=== PATIENT | male | born 1950 | race Asian ===

== ENCOUNTER 2023-07-03 10:45 | Outpatient (RCR) | payer MEDICARE, SELFPAY ==
--- NOTE | 2023-05-31 09:00 | PT.OIE ---
Current Diagnoses Pain in right knee (05/31/23) Pain in right ankle and joints of right foot (05/31/23) Unspecified fracture of shaft of right tibia, subsequent encounter for closed fracture with routine healing (05/31/23) Visit Care Team Role Provider Type Mayra Bonner MD Family Provider Non-Staff Primary Care Provider Specialty: Internal Medicine Address: [address] [place], [address] Email: Frankie Camp DPM Attending Provider Non-Staff Referring Provider Specialty: Medical Address: [address] [place], [address] Email: Physical Therapy Initial Evaluation PT-OP-A Visit Information Start: 05/31/23 08:11 Freq: Status: Active Protocol: Document 05/31/23 08:44 ED (Rec: 05/31/23 09:00 ED [id number]) Out-Patient Physical Therapy Visit Information Visit Information Visit Type Initial Evaluation Visit Note Date of Surgery: 04/07/23 Visit Start Time 08:10 Visit Stop Time 08:50 Total Visit Minutes 40 Visit Number 1 Evaluation Information Evaluation Date 05/31/23 PT-OP-B Current Condition Start: 05/31/23 08:11 Freq: Status: Active Protocol: Document 05/31/23 08:44 ED (Rec: 05/31/23 09:00 ED [id number]) Current Condition History of Current Condition Onset Date 04/07 History of Current Condition Pt is s/p R IM sohan on 04/07/23 after a tib/fib fracture while hiking in [place]. Pt does speak Armenian and denies wanting an photoengraving machine operator/tender for PT evaluation. Pt states that his ankle is more red compared to his R ankle and that it hurts when he walks and uses stairs . Per patient report, he is living in a hotel in [facility] until he is ready to go back to his house near [place]. Pt does have access to a gym at the hotel. He denies doing any exercises to after his surgery. Prior Functional Status Baseline Function- ADL's Independent Baseline Function- Mobility Independent PT-OP-C Subjective Start: 05/31/23 08:11 Freq: Status: Active Protocol: Document 05/31/23 08:44 ED (Rec: 05/31/23 09:00 ED [id number]) OP-PT Subjective Patient Comments Patient Reported Progress Improving Patient Questionnaires Lower Extremity Functional Scale LEFS Score 26 / 80 = 32.5 % LEFS Impairment 20 to 39% Impaired (Score 48- 62) OP-PT Pain Assessment Location R knee/ankle Pain Location Details R anterior knee and anterior ankle Intensity 2 Scale Used Numeric (0 - 10) Description Aching,Dull,Sharp Frequency Intermittent Pain Aggravating Factors Position,Changing Position, Activity,Exercise,Stair Climbing PT-OP-D Balance Start: 05/31/23 08:11 Freq: Status: Active Protocol: Document 05/31/23 08:44 ED (Rec: 05/31/23 09:00 ED [id number]) Balance Tests Single Limb Standing Single Limb- Right <3 seconds Single Limb- Left 5-10 seconds PT-OP-K Range of Motion Start: 05/31/23 08:11 Freq: Status: Active Protocol: Document 05/31/23 08:44 ED (Rec: 05/31/23 09:00 ED [id number]) Ankle and Foot Goniometric Range of Motion Ankle and Foot Left Active Ankle/Foot ROM WFL Yes Testing Position Sitting Dorsiflexion with Knee Flexed 5 Plantarflexion 50 Right Active Ankle/Foot ROM WFL No Testing Position Sitting Dorsiflexion with Knee Flexed 0 Plantarflexion 30 PT-OP-M Strength Start: 05/31/23 08:11 Freq: Status: Active Protocol: Document 05/31/23 08:44 ED (Rec: 05/31/23 09:00 ED [id number]) Ankle/Foot Strength Ankle and Foot Manual Muscle Testing Left Dorsiflexion (L4) 4 Good Plantarflexion (S1) 4 Good Right Dorsiflexion (L4) 4- Good- Plantarflexion (S1) 3 Fair PT-OP-Q Treatments Start: 05/31/23 08:11 Freq: Status: Active Protocol: Document 05/31/23 08:44 ED (Rec: 05/31/23 09:00 ED [id number]) Cardio Equipment Elliptical Duration (Minutes) 5 Bicycle (Upright) Duration (Minutes) 5 Therapeutic Exercises Supine Exercises banded hip flexion/DF Side bilateral Reps/Minutes x10 each leg press Supine Exercise Name deep squats Side bilateral Sitting Exercises ankle circles Side right Reps/Minutes x30 CW/CCW Standing Exercises calf stretch Side bilateral Reps/Minutes x60'' hold heel raise Side bilateral Reps/Minutes x10 Comments 5'' holds PT-OP-T Assessment and Plan Start: 05/31/23 08:11 Freq: Status: Active Protocol: Document 05/31/23 08:44 ED (Rec: 05/31/23 09:00 ED [id number]) Physical Therapy Assessment Goals stairs Impairment stairs Short Term Goal (STG) Pt will be able to negotiate steps c/ reciprocal gait pattern and no UE assistance. STG Duration 3-4 weeks balance Impairment balance Short Term Goal (STG) Pt will be able to perform static SL balance on R LE for 10 seconds. STG Duration 3 weeks Optometry Teacher Goal (LTG) Pt will be able to perform dynamic SL balance on R LE c/ control and no pain. LTG Duration 6-8 weeks ROM Impairment ankle ROM Short Term Goal (STG) Pt will improve ankle PF ROM to 40 degrees and ankle DF to 5 degrees c/ knee bent. STG Duration 3 weeks Optometry Teacher Goal (LTG) Pt will improve ankle PF ROM to 50 degrees and/or ankle DF to 5 degrees c/ knee bent LTG Duration 6-8 weeks HEP Impairment HEP Short Term Goal (STG) Pt will report performing HEP >4 days/week. STG Duration 3 weeks Fpc Goal (LTG) Pt will report performing HEP >4 days/week. LTG Duration 6-8 weeks Assessment Summary Assessment Pt reported to PT s/p R IM sohan on 04/07/23 after a hiking accident in [place] over the summer. Pt rated pain as 2/10 in his R ankle and knee. He is ambulating c/ an antalgic gait pattern currently. He demonstrated reduced ankle ROM ; he was about 20 degrees shy in PF ROM compared to R ankle and lacking 5 degrees of DF. Pt currently unable to perform SL balance on R LE for >3 seconds. PT provided initial HEP to work on balance , strength, and ROM with exercises of : ankle circles, SL balance, heel raises, and riding stationary bike. Pt was able to perform all movements today c/o pain. Physical Therapy Plan Frequency and Duration Frequency of Treatment 2x/Week Duration of treatment (weeks) 10 Plan of Care Start Date 05/31/23 Plan of Care End Date 12/14/23 Therapeutic Interventions Therapeutic Interventions Balance Training,Coordination Training,Gait Training,Home Exercise Program,Joint Mobilizations,Manual Therapy, Neuromuscular Re-education, Patient/Caregiver Education, Self-Care/Home Management,Soft Tissue Mobilization,Taping, Therapeutic Activities, Therapeutic Exercises Modalities Biofeedback,Cold Pack/Ice Massage,Electric Stimulation, Hot Packs Next Visit Focus/Plan Next Note Type Treatment Note Next Visit Plan bike, HEP (ankle circles, heel raise, SL balance), elliptical, leg press squat, banded marching
--- NOTE | 2023-05-31 09:00 | PT.OPPOC ---
Physical, Occupational & Speech Therapy At [facility] Current Diagnoses Pain in right knee (05/31/23) Pain in right ankle and joints of right foot (05/31/23) Unspecified fracture of shaft of right tibia, subsequent encounter for closed fracture with routine healing (05/31/23) Visit Care Team Role Provider Type Mayra Bonner MD Family Provider Non-Staff Primary Care Provider Specialty: Internal Medicine Address: [address] [place], [address] Email: Frankie Camp DPM Attending Provider Non-Staff Referring Provider Specialty: Medical Address: [address] [place] [address], [address] Email: Plan Of Care PT-OP-T Assessment and Plan Start: 05/31/23 08:11 Freq: Status: Active Protocol: Document 05/31/23 08:44 ED (Rec: 05/31/23 09:00 ED [id number]) Physical Therapy Assessment Goals stairs Impairment stairs Short Term Goal (STG) Pt will be able to negotiate steps c/ reciprocal gait pattern and no UE assistance. STG Duration 3-4 weeks balance Impairment balance Short Term Goal (STG) Pt will be able to perform static SL balance on R LE for 10 seconds. STG Duration 3 weeks Halfway Goal (LTG) Pt will be able to perform dynamic SL balance on R LE c/ control and no pain. LTG Duration 6-8 weeks ROM Impairment ankle ROM Short Term Goal (STG) Pt will improve ankle PF ROM to 40 degrees and ankle DF to 5 degrees c/ knee bent. STG Duration 3 weeks Chief Psychology Goal (LTG) Pt will improve ankle PF ROM to 50 degrees and/or ankle DF to 5 degrees c/ knee bent LTG Duration 6-8 weeks HEP Impairment HEP Short Term Goal (STG) Pt will report performing HEP >4 days/week. STG Duration 3 weeks Chief Psychology Goal (LTG) Pt will report performing HEP >4 days/week. LTG Duration 6-8 weeks Assessment Summary Assessment Pt reported to PT s/p R IM sohan on 04/07/23 after a hiking accident in [place] over the summer. Pt rated pain as 2/10 in his R ankle and knee. He is ambulating c/ an antalgic gait pattern currently. He demonstrated reduced ankle ROM ; he was about 20 degrees shy in PF ROM compared to R ankle and lacking 5 degrees of DF. Pt currently unable to perform SL balance on R LE for >3 seconds. PT provided initial HEP to work on balance , strength, and ROM with exercises of : ankle circles, SL balance, heel raises, and riding stationary bike. Pt was able to perform all movements today c/o pain. Physical Therapy Plan Frequency and Duration Frequency of Treatment 2x/Week Duration of treatment (weeks) 10 Plan of Care Start Date 05/31/23 Plan of Care End Date 08/29/23 Therapeutic Interventions Therapeutic Interventions Balance Training,Coordination Training,Gait Training,Home Exercise Program,Joint Mobilizations,Manual Therapy, Neuromuscular Re-education, Patient/Caregiver Education, Self-Care/Home Management,Soft Tissue Mobilization,Taping, Therapeutic Activities, Therapeutic Exercises Modalities Biofeedback,Cold Pack/Ice Massage,Electric Stimulation, Hot Packs Next Visit Focus/Plan Next Note Type Treatment Note Next Visit Plan bike, HEP (ankle circles, heel raise, SL balance), elliptical, leg press squat, banded marching Plan of Care Dates Plan of Care Start Date 05/31/23 Plan of Care End Date 08/29/23 Electronically Signed by: Nayan Soni PT 05/31/23 0900 If you are in agreement with this Plan of Care, please return a signed and dated copy. I have reviewed this Plan of Care and certify that the skilled therapy services above are required to meet the patient?s needs. Physician Signature Date Printed Name and Credentials Clinical Instructor Signature Printed Name and Credentials
--- NOTE | 2023-06-05 09:41 | PT.OTN ---
Current Diagnoses Pain in right knee (06/05/23) Pain in right ankle and joints of right foot (06/05/23) Unspecified fracture of shaft of right tibia, subsequent encounter for closed fracture with routine healing (06/05/23) Physical Therapy Treatment Note PT-OP-A Visit Information Start: 05/31/23 08:11 Freq: Status: Active Protocol: Document 06/05/23 09:36 ED (Rec: 06/05/23 09:41 ED [id number]) Out-Patient Physical Therapy Visit Information Visit Information Visit Type Treatment Note Visit Note Date of Surgery: 04/07/23 Visit Start Time 09:00 Visit Stop Time 09:40 Total Visit Minutes 40 Visit Number 2 PT-OP-B Current Condition Start: 05/31/23 08:11 Freq: Status: Active Protocol: Document 05/31/23 08:44 ED (Rec: 05/31/23 09:00 ED [id number]) Current Condition History of Current Condition Onset Date 04/07 History of Current Condition Pt is s/p R IM sohan on 04/07/23 after a tib/fib fracture while hiking in [place]. Pt does speak Bangladeshi and denies wanting an campaign marketing manager for PT evaluation. Pt states that his ankle is more red compared to his R ankle and that it hurts when he walks and uses stairs . Per patient report, he is living in a hotel in [facility] until he is ready to go back to his house near [place]. Pt does have access to a gym at the hotel. He denies doing any exercises to after his surgery. Prior Functional Status Baseline Function- ADL's Independent Baseline Function- Mobility Independent PT-OP-C Subjective Start: 05/31/23 08:11 Freq: Status: Active Protocol: Document 06/05/23 09:36 ED (Rec: 06/05/23 09:41 ED [id number]) OP-PT Subjective Patient Comments Patient Comments Pt states that he did his HEP in the AM and PM since his evaluation. His ankle feels better. He has some pain in his proximal R tibia area but it is sparse. PT-OP-D Balance Start: 05/31/23 08:11 Freq: Status: Active Protocol: Document 05/31/23 08:44 ED (Rec: 05/31/23 09:00 ED [id number]) Balance Tests Single Limb Standing Single Limb- Right <3 seconds Single Limb- Left 5-10 seconds PT-OP-K Range of Motion Start: 05/31/23 08:11 Freq: Status: Active Protocol: Document 05/31/23 08:44 ED (Rec: 05/31/23 09:00 ED [id number]) Ankle and Foot Goniometric Range of Motion Ankle and Foot Left Active Ankle/Foot ROM WFL Yes Testing Position Sitting Dorsiflexion with Knee Flexed 5 Plantarflexion 50 Right Active Ankle/Foot ROM WFL No Testing Position Sitting Dorsiflexion with Knee Flexed 0 Plantarflexion 30 PT-OP-M Strength Start: 05/31/23 08:11 Freq: Status: Active Protocol: Document 05/31/23 08:44 ED (Rec: 05/31/23 09:00 ED [id number]) Ankle/Foot Strength Ankle and Foot Manual Muscle Testing Left Dorsiflexion (L4) 4 Good Plantarflexion (S1) 4 Good Right Dorsiflexion (L4) 4- Good- Plantarflexion (S1) 3 Fair PT-OP-Q Treatments Start: 05/31/23 08:11 Freq: Status: Active Protocol: Document 06/05/23 09:36 ED (Rec: 06/05/23 09:41 ED [id number]) Cardio Equipment Recumbent Bicycle Duration (Minutes) 5 Therapeutic Exercises Supine Exercises banded hip flexion/DF Supine Exercise Name seated DF against band Side bilateral Reps/Minutes 2x20 ea leg press Supine Exercise Name deep squats Side bilateral Resistance 25# Reps/Minutes 3x15 Comments unilateral Standing Exercises calf stretch Side bilateral Reps/Minutes 3x60'' hold heel raise Side bilateral Reps/Minutes 2x10 Comments 5'' holds Neuro Re-Education Treatment Balance Activities SL balance Details SL balance Reps/Duration x5-10'' Comments required fingertip UE support ; slight pain in tibia during PT-OP-T Assessment and Plan Start: 05/31/23 08:11 Freq: Status: Active Protocol: Document 06/05/23 09:36 ED (Rec: 06/05/23 09:41 ED [id number]) Physical Therapy Assessment Goals stairs Impairment stairs Short Term Goal (STG) Pt will be able to negotiate steps c/ reciprocal gait pattern and no UE assistance. STG Duration 3-4 weeks balance Impairment balance Short Term Goal (STG) Pt will be able to perform static SL balance on R LE for 10 seconds. STG Duration 3 weeks Senior Care Goal (LTG) Pt will be able to perform dynamic SL balance on R LE c/ control and no pain. LTG Duration 6-8 weeks ROM Impairment ankle ROM Short Term Goal (STG) Pt will improve ankle PF ROM to 40 degrees and ankle DF to 5 degrees c/ knee bent. STG Duration 3 weeks Senior Care Goal (LTG) Pt will improve ankle PF ROM to 50 degrees and/or ankle DF to 5 degrees c/ knee bent LTG Duration 6-8 weeks HEP Impairment HEP Short Term Goal (STG) Pt will report performing HEP >4 days/week. STG Duration 3 weeks Condenser Setter Goal (LTG) Pt will report performing HEP >4 days/week. LTG Duration 6-8 weeks Assessment Summary Assessment Pt demonstrated improved gait quality today compared to evaluation. Denied any ankle discomfort during exercises today but did have slight proximal tibia discomfort during SL balance. PT focused on isolated strengthening to plantar flexors and dorsiflexors along with movements to improve DF ROM such as calf stretch and deep squats on leg press. Physical Therapy Plan Frequency and Duration Frequency of Treatment 2x/Week Duration of treatment (weeks) 10 Plan of Care Start Date 05/31/23 Plan of Care End Date 08/29/23 Therapeutic Interventions Therapeutic Interventions Balance Training,Coordination Training,Gait Training,Home Exercise Program,Joint Mobilizations,Manual Therapy, Neuromuscular Re-education, Patient/Caregiver Education, Self-Care/Home Management,Soft Tissue Mobilization,Taping, Therapeutic Activities, Therapeutic Exercises Modalities Biofeedback,Cold Pack/Ice Massage,Electric Stimulation, Hot Packs Next Visit Focus/Plan Next Note Type Treatment Note Next Visit Plan bike, HEP (ankle circles, heel raise, SL balance), elliptical, leg press squat, banded marching
--- NOTE | 2023-06-07 11:59 | PT.OTN ---
Current Diagnoses Pain in right knee (06/07/23) Pain in right ankle and joints of right foot (06/07/23) Unspecified fracture of shaft of right tibia, subsequent encounter for closed fracture with routine healing (06/07/23) Physical Therapy Treatment Note PT-OP-A Visit Information Start: 05/31/23 08:11 Freq: Status: Active Protocol: Document 06/07/23 11:55 ED (Rec: 06/07/23 11:58 ED [id number]) Out-Patient Physical Therapy Visit Information Visit Information Visit Type Treatment Note Visit Note Date of Surgery: 04/07/23 Visit Start Time 10:45 Visit Stop Time 11:15 Total Visit Minutes 45 Visit Number 3 PT-OP-B Current Condition Start: 05/31/23 08:11 Freq: Status: Active Protocol: Document 05/31/23 08:44 ED (Rec: 05/31/23 09:00 ED [id number]) Current Condition History of Current Condition Onset Date 04/07 History of Current Condition Pt is s/p R IM sohan on 04/07/23 after a tib/fib fracture while hiking in [place]. Pt does speak Ethiopian and denies wanting an hospital aides and assistants teacher for PT evaluation. Pt states that his ankle is more red compared to his R ankle and that it hurts when he walks and uses stairs . Per patient report, he is living in a hotel in [facility] until he is ready to go back to his house near [place]. Pt does have access to a gym at the hotel. He denies doing any exercises to after his surgery. Prior Functional Status Baseline Function- ADL's Independent Baseline Function- Mobility Independent PT-OP-C Subjective Start: 05/31/23 08:11 Freq: Status: Active Protocol: Document 06/07/23 11:55 ED (Rec: 06/07/23 11:58 ED [id number]) OP-PT Subjective Patient Comments Patient Comments Pt states he has some medial lower leg pain at times. Denies any increase in discomfort following last PT session. PT-OP-D Balance Start: 05/31/23 08:11 Freq: Status: Active Protocol: Document 05/31/23 08:44 ED (Rec: 05/31/23 09:00 ED [id number]) Balance Tests Single Limb Standing Single Limb- Right <3 seconds Single Limb- Left 5-10 seconds PT-OP-K Range of Motion Start: 05/31/23 08:11 Freq: Status: Active Protocol: Document 05/31/23 08:44 ED (Rec: 05/31/23 09:00 ED [id number]) Ankle and Foot Goniometric Range of Motion Ankle and Foot Left Active Ankle/Foot ROM WFL Yes Testing Position Sitting Dorsiflexion with Knee Flexed 5 Plantarflexion 50 Right Active Ankle/Foot ROM WFL No Testing Position Sitting Dorsiflexion with Knee Flexed 0 Plantarflexion 30 PT-OP-M Strength Start: 05/31/23 08:11 Freq: Status: Active Protocol: Document 05/31/23 08:44 ED (Rec: 05/31/23 09:00 ED [id number]) Ankle/Foot Strength Ankle and Foot Manual Muscle Testing Left Dorsiflexion (L4) 4 Good Plantarflexion (S1) 4 Good Right Dorsiflexion (L4) 4- Good- Plantarflexion (S1) 3 Fair PT-OP-Q Treatments Start: 05/31/23 08:11 Freq: Status: Active Protocol: Document 06/07/23 11:55 ED (Rec: 06/07/23 11:58 ED [id number]) Cardio Equipment Bicycle (Upright) Duration (Minutes) 5 Other forefoot on pedals Treadmill Duration (Minutes) 5 Speed 1.0 Other retro walking Therapeutic Exercises Supine Exercises banded hip flexion/DF Supine Exercise Name seated DF against band Side bilateral Reps/Minutes 2x20 ea leg press Supine Exercise Name deep squats Side bilateral Resistance 25# Reps/Minutes 3x15 Comments unilateral Standing Exercises calf stretch Side bilateral Reps/Minutes 3x60'' hold heel raise Standing Exercise Name captain alli Side bilateral Reps/Minutes 2x10 Comments 5'' holds Neuro Re-Education Treatment Balance Activities dynamic balance Details adan step overs Equipment hurdles Reps/Duration 2x4 laps PT-OP-T Assessment and Plan Start: 05/31/23 08:11 Freq: Status: Active Protocol: Document 06/07/23 11:55 ED (Rec: 06/07/23 11:58 ED [id number]) Physical Therapy Assessment Goals stairs Impairment stairs Short Term Goal (STG) Pt will be able to negotiate steps c/ reciprocal gait pattern and no UE assistance. STG Duration 3-4 weeks balance Impairment balance Short Term Goal (STG) Pt will be able to perform static SL balance on R LE for 10 seconds. STG Duration 3 weeks Well Testing Operator Goal (LTG) Pt will be able to perform dynamic SL balance on R LE c/ control and no pain. LTG Duration 6-8 weeks ROM Impairment ankle ROM Short Term Goal (STG) Pt will improve ankle PF ROM to 40 degrees and ankle DF to 5 degrees c/ knee bent. STG Duration 3 weeks Well Testing Operator Goal (LTG) Pt will improve ankle PF ROM to 50 degrees and/or ankle DF to 5 degrees c/ knee bent LTG Duration 6-8 weeks HEP Impairment HEP Short Term Goal (STG) Pt will report performing HEP >4 days/week. STG Duration 3 weeks Well Testing Operator Goal (LTG) Pt will report performing HEP >4 days/week. LTG Duration 6-8 weeks Assessment Summary Assessment Pt ambulated into clinic with antalgic gait pattern but was able to perform adan step overs and ambulate on TM without abnormal gait pattern. Pt denies any discomfort in ankle/foot area during drills but does occasionally have medial tibial discomfort but very low on the pain scale. PT focused on improving ankle ROM, balance, and strength.
--- NOTE | 2023-06-12 12:09 | PT.OTN ---
Current Diagnoses Pain in right knee (06/12/23) Pain in right ankle and joints of right foot (06/12/23) Unspecified fracture of shaft of right tibia, subsequent encounter for closed fracture with routine healing (06/12/23) Physical Therapy Treatment Note PT-OP-A Visit Information Start: 05/31/23 08:11 Freq: Status: Active Protocol: Document 06/12/23 12:02 ED (Rec: 06/12/23 12:06 ED [id number]) Out-Patient Physical Therapy Visit Information Visit Information Visit Type Treatment Note Visit Note Date of Surgery: 04/07/23 Visit Start Time 11:30 Visit Stop Time 12:10 Total Visit Minutes 40 Visit Number 4 PT-OP-B Current Condition Start: 05/31/23 08:11 Freq: Status: Active Protocol: Document 05/31/23 08:44 ED (Rec: 05/31/23 09:00 ED [id number]) Current Condition History of Current Condition Onset Date 04/07 History of Current Condition Pt is s/p R IM sohan on 04/07/23 after a tib/fib fracture while hiking in [place]. Pt does speak Indonesian and denies wanting an site interpreter for PT evaluation. Pt states that his ankle is more red compared to his R ankle and that it hurts when he walks and uses stairs . Per patient report, he is living in a hotel in [facility] until he is ready to go back to his house near [place]. Pt does have access to a gym at the hotel. He denies doing any exercises to after his surgery. Prior Functional Status Baseline Function- ADL's Independent Baseline Function- Mobility Independent PT-OP-C Subjective Start: 05/31/23 08:11 Freq: Status: Active Protocol: Document 06/12/23 12:02 ED (Rec: 06/12/23 12:06 ED [id number]) OP-PT Subjective Patient Comments Patient Comments Pt states his ankle is feeling better. His most noticeable pain is in his anterior proximal R tibia. PT-OP-D Balance Start: 05/31/23 08:11 Freq: Status: Active Protocol: Document 05/31/23 08:44 ED (Rec: 05/31/23 09:00 ED [id number]) Balance Tests Single Limb Standing Single Limb- Right <3 seconds Single Limb- Left 5-10 seconds PT-OP-K Range of Motion Start: 05/31/23 08:11 Freq: Status: Active Protocol: Document 05/31/23 08:44 ED (Rec: 05/31/23 09:00 ED [id number]) Ankle and Foot Goniometric Range of Motion Ankle and Foot Left Active Ankle/Foot ROM WFL Yes Testing Position Sitting Dorsiflexion with Knee Flexed 5 Plantarflexion 50 Right Active Ankle/Foot ROM WFL No Testing Position Sitting Dorsiflexion with Knee Flexed 0 Plantarflexion 30 PT-OP-M Strength Start: 05/31/23 08:11 Freq: Status: Active Protocol: Document 05/31/23 08:44 ED (Rec: 05/31/23 09:00 ED [id number]) Ankle/Foot Strength Ankle and Foot Manual Muscle Testing Left Dorsiflexion (L4) 4 Good Plantarflexion (S1) 4 Good Right Dorsiflexion (L4) 4- Good- Plantarflexion (S1) 3 Fair PT-OP-Q Treatments Start: 05/31/23 08:11 Freq: Status: Active Protocol: Document 06/12/23 12:02 ED (Rec: 06/12/23 12:06 ED [id number]) Cardio Equipment Bicycle (Upright) Duration (Minutes) 5 Other forefoot on pedals Therapeutic Exercises Supine Exercises leg press Supine Exercise Name deep squats Side bilateral Resistance 25# Reps/Minutes 3x15 Comments unilateral Standing Exercises standing dorsiflexion Reps/Minutes 2x20 heel/toe walking Reps/Minutes 2x15' calf stretch Side bilateral Reps/Minutes 3x60'' hold heel raise Standing Exercise Name captain alli Side bilateral Reps/Minutes 2x10 Comments 5'' holds Therapeutic Activity Therapeutic Activity step ups Name 8'' step up Reps/Minutes 2x15 Comments cued to keep heel in contract c/ ground; minimal UE assistance Neuro Re-Education Treatment Balance Activities dynamic balance Details adan step overs Equipment hurdles Reps/Duration 2x4 laps SL balance Details SL balance Reps/Duration x5-10'' Comments no UE support; max hold was 6 seconds for R LE PT-OP-T Assessment and Plan Start: 05/31/23 08:11 Freq: Status: Active Protocol: Document 06/12/23 12:02 ED (Rec: 06/12/23 12:06 ED [id number]) Physical Therapy Assessment Goals stairs Impairment stairs Short Term Goal (STG) Pt will be able to negotiate steps c/ reciprocal gait pattern and no UE assistance. STG Duration 3-4 weeks balance Impairment balance Short Term Goal (STG) Pt will be able to perform static SL balance on R LE for 10 seconds. STG Duration 3 weeks Access Representative Goal (LTG) Pt will be able to perform dynamic SL balance on R LE c/ control and no pain. LTG Duration 6-8 weeks ROM Impairment ankle ROM Short Term Goal (STG) Pt will improve ankle PF ROM to 40 degrees and ankle DF to 5 degrees c/ knee bent. STG Duration 3 weeks Access Representative Goal (LTG) Pt will improve ankle PF ROM to 50 degrees and/or ankle DF to 5 degrees c/ knee bent LTG Duration 6-8 weeks HEP Impairment HEP Short Term Goal (STG) Pt will report performing HEP >4 days/week. STG Duration 3 weeks Snf Goal (LTG) Pt will report performing HEP >4 days/week. LTG Duration 6-8 weeks Assessment Summary Assessment Pt demonstrating improvement in gait fluiditiy and plantar flexor strength. Pt does have less consistent antalgic gait pattern; is demonstrating ability to perform single leg exercises such as step ups and single leg leg press c/o pain in ankle. He has improved in single leg balance and was able to achieve about 6 seconds on R LE but easily achieved 10 seconds using L LE . Physical Therapy Plan Frequency and Duration Frequency of Treatment 2x/Week Duration of treatment (weeks) 10 Plan of Care Start Date 05/31/23 Plan of Care End Date 08/29/23 Therapeutic Interventions Therapeutic Interventions Balance Training,Coordination Training,Gait Training,Home Exercise Program,Joint Mobilizations,Manual Therapy, Neuromuscular Re-education, Patient/Caregiver Education, Self-Care/Home Management,Soft Tissue Mobilization,Taping, Therapeutic Activities, Therapeutic Exercises Modalities Biofeedback,Cold Pack/Ice Massage,Electric Stimulation, Hot Packs Next Visit Focus/Plan Next Note Type Treatment Note Next Visit Plan bike, HEP (ankle circles, heel raise, SL balance), elliptical, leg press squat, banded marching
--- NOTE | 2023-06-14 13:29 | PT.OTN ---
Current Diagnoses Pain in right knee (06/14/23) Pain in right ankle and joints of right foot (06/14/23) Unspecified fracture of shaft of right tibia, subsequent encounter for closed fracture with routine healing (06/14/23) Physical Therapy Treatment Note PT-OP-A Visit Information Start: 05/31/23 08:11 Freq: Status: Active Protocol: Document 06/14/23 13:25 ED (Rec: 06/14/23 13:29 ED [id number]) Out-Patient Physical Therapy Visit Information Visit Information Visit Type Treatment Note Visit Note Date of Surgery: 04/07/23 Visit Start Time 12:48 Visit Stop Time 13:28 Total Visit Minutes 40 Visit Number 5 PT-OP-B Current Condition Start: 05/31/23 08:11 Freq: Status: Active Protocol: Document 05/31/23 08:44 ED (Rec: 05/31/23 09:00 ED [id number]) Current Condition History of Current Condition Onset Date 04/07 History of Current Condition Pt is s/p R IM sohan on 04/07/23 after a tib/fib fracture while hiking in [place]. Pt does speak Greek and denies wanting an laborer laboratory for PT evaluation. Pt states that his ankle is more red compared to his R ankle and that it hurts when he walks and uses stairs . Per patient report, he is living in a hotel in [facility] until he is ready to go back to his house near [place]. Pt does have access to a gym at the hotel. He denies doing any exercises to after his surgery. Prior Functional Status Baseline Function- ADL's Independent Baseline Function- Mobility Independent PT-OP-C Subjective Start: 05/31/23 08:11 Freq: Status: Active Protocol: Document 06/14/23 13:25 ED (Rec: 06/14/23 13:29 ED [id number]) OP-PT Subjective Patient Comments Patient Comments Pt states his ankle is feeling better. His most noticeable pain is in his anterior proximal R tibia. PT-OP-D Balance Start: 05/31/23 08:11 Freq: Status: Active Protocol: Document 05/31/23 08:44 ED (Rec: 05/31/23 09:00 ED [id number]) Balance Tests Single Limb Standing Single Limb- Right <3 seconds Single Limb- Left 5-10 seconds PT-OP-K Range of Motion Start: 05/31/23 08:11 Freq: Status: Active Protocol: Document 05/31/23 08:44 ED (Rec: 05/31/23 09:00 ED [id number]) Ankle and Foot Goniometric Range of Motion Ankle and Foot Left Active Ankle/Foot ROM WFL Yes Testing Position Sitting Dorsiflexion with Knee Flexed 5 Plantarflexion 50 Right Active Ankle/Foot ROM WFL No Testing Position Sitting Dorsiflexion with Knee Flexed 0 Plantarflexion 30 PT-OP-M Strength Start: 05/31/23 08:11 Freq: Status: Active Protocol: Document 05/31/23 08:44 ED (Rec: 05/31/23 09:00 ED [id number]) Ankle/Foot Strength Ankle and Foot Manual Muscle Testing Left Dorsiflexion (L4) 4 Good Plantarflexion (S1) 4 Good Right Dorsiflexion (L4) 4- Good- Plantarflexion (S1) 3 Fair PT-OP-Q Treatments Start: 05/31/23 08:11 Freq: Status: Active Protocol: Document 06/14/23 13:25 ED (Rec: 06/14/23 13:29 ED [id number]) Cardio Equipment Bicycle (Upright) Duration (Minutes) 5 Other forefoot on pedals Treadmill Duration (Minutes) 15 Speed 1.0 Other fast walk 5', retro walking 5' , normal 5' Therapeutic Exercises Sitting Exercises sup/pronation Equipment Used 1/2 foam roller Reps/Minutes 2x10 ea ankle DF Resistance yllw band Reps/Minutes 2x20 Standing Exercises calf stretch Side bilateral Reps/Minutes 3x60'' hold heel raise Standing Exercise Name alli Side bilateral Reps/Minutes 2x10 Comments 5'' holds Therapeutic Activity Therapeutic Activity squat Name staggered STS Reps/Minutes 2x12 Comments R LE closer Neuro Re-Education Treatment Balance Activities SL balance Details SL balance Reps/Duration x5-15'' Comments no UE support; max hold was 15 seconds for R LE PT-OP-T Assessment and Plan Start: 05/31/23 08:11 Freq: Status: Active Protocol: Document 06/14/23 13:25 ED (Rec: 06/14/23 13:29 ED [id number]) Physical Therapy Assessment Goals stairs Impairment stairs Short Term Goal (STG) Pt will be able to negotiate steps c/ reciprocal gait pattern and no UE assistance. STG Duration 3-4 weeks balance Impairment balance Short Term Goal (STG) Pt will be able to perform static SL balance on R LE for 10 seconds. STG Duration 3 weeks -MET Correction Goal (LTG) Pt will be able to perform dynamic SL balance on R LE c/ control and no pain. LTG Duration 6-8 weeks ROM Impairment ankle ROM Short Term Goal (STG) Pt will improve ankle PF ROM to 40 degrees and ankle DF to 5 degrees c/ knee bent. STG Duration 3 weeks Correction Goal (LTG) Pt will improve ankle PF ROM to 50 degrees and/or ankle DF to 5 degrees c/ knee bent LTG Duration 6-8 weeks HEP Impairment HEP Short Term Goal (STG) Pt will report performing HEP >4 days/week. STG Duration 3 weeks Glass Ribbon Machine Operator Goal (LTG) Pt will report performing HEP >4 days/week. LTG Duration 6-8 weeks Assessment Summary Assessment Pt able to maintain static SL balance on R LE for 15 seconds today ; his best effort earlier this week was 6 seconds. Is demonstrating improved gait fluidity, calf strength, and SL balance. Physical Therapy Plan Frequency and Duration Frequency of Treatment 2x/Week Duration of treatment (weeks) 10 Plan of Care Start Date 05/31/23 Plan of Care End Date 08/29/23 Therapeutic Interventions Therapeutic Interventions Balance Training,Coordination Training,Gait Training,Home Exercise Program,Joint Mobilizations,Manual Therapy, Neuromuscular Re-education, Patient/Caregiver Education, Self-Care/Home Management,Soft Tissue Mobilization,Taping, Therapeutic Activities, Therapeutic Exercises Modalities Biofeedback,Cold Pack/Ice Massage,Electric Stimulation, Hot Packs Next Visit Focus/Plan Next Note Type Treatment Note Next Visit Plan bike, TM walk, heel raise, SL balance, leg press squat, staggered squat, SL heel raise iso
--- NOTE | 2023-06-21 10:36 | PT.OTN ---
Current Diagnoses Pain in right knee (06/21/23) Pain in right ankle and joints of right foot (06/21/23) Unspecified fracture of shaft of right tibia, subsequent encounter for closed fracture with routine healing (06/21/23) Physical Therapy Treatment Note PT-OP-A Visit Information Start: 05/31/23 08:11 Freq: Status: Active Protocol: Document 06/21/23 10:33 ED (Rec: 06/21/23 10:36 ED [id number]) Out-Patient Physical Therapy Visit Information Visit Information Visit Type Treatment Note Visit Note Date of Surgery: 04/07/23 Visit Start Time 09:55 Visit Stop Time 10:35 Total Visit Minutes 40 Visit Number 6 PT-OP-B Current Condition Start: 05/31/23 08:11 Freq: Status: Active Protocol: Document 05/31/23 08:44 ED (Rec: 05/31/23 09:00 ED [id number]) Current Condition History of Current Condition Onset Date 04/07 History of Current Condition Pt is s/p R IM sohan on 04/07/23 after a tib/fib fracture while hiking in [place]. Pt does speak Albanian and denies wanting an student worker for PT evaluation. Pt states that his ankle is more red compared to his R ankle and that it hurts when he walks and uses stairs . Per patient report, he is living in a hotel in [facility] until he is ready to go back to his house near [place]. Pt does have access to a gym at the hotel. He denies doing any exercises to after his surgery. Prior Functional Status Baseline Function- ADL's Independent Baseline Function- Mobility Independent PT-OP-C Subjective Start: 05/31/23 08:11 Freq: Status: Active Protocol: Document 06/21/23 10:33 ED (Rec: 06/21/23 10:36 ED [id number]) OP-PT Subjective Patient Comments Patient Comments Pt states his ankle is feeling better. His most noticeable pain is in his anterior proximal R tibia. PT-OP-D Balance Start: 05/31/23 08:11 Freq: Status: Active Protocol: Document 05/31/23 08:44 ED (Rec: 05/31/23 09:00 ED [id number]) Balance Tests Single Limb Standing Single Limb- Right <3 seconds Single Limb- Left 5-10 seconds PT-OP-K Range of Motion Start: 05/31/23 08:11 Freq: Status: Active Protocol: Document 05/31/23 08:44 ED (Rec: 05/31/23 09:00 ED [id number]) Ankle and Foot Goniometric Range of Motion Ankle and Foot Left Active Ankle/Foot ROM WFL Yes Testing Position Sitting Dorsiflexion with Knee Flexed 5 Plantarflexion 50 Right Active Ankle/Foot ROM WFL No Testing Position Sitting Dorsiflexion with Knee Flexed 0 Plantarflexion 30 PT-OP-M Strength Start: 05/31/23 08:11 Freq: Status: Active Protocol: Document 05/31/23 08:44 ED (Rec: 05/31/23 09:00 ED [id number]) Ankle/Foot Strength Ankle and Foot Manual Muscle Testing Left Dorsiflexion (L4) 4 Good Plantarflexion (S1) 4 Good Right Dorsiflexion (L4) 4- Good- Plantarflexion (S1) 3 Fair PT-OP-Q Treatments Start: 05/31/23 08:11 Freq: Status: Active Protocol: Document 06/21/23 10:33 ED (Rec: 06/21/23 10:36 ED [id number]) Cardio Equipment Bicycle (Upright) Duration (Minutes) 5 Other forefoot on pedals Treadmill Duration (Minutes) 15 Speed 1.0 Other fast walk 5', retro walking 5' , normal 5' Therapeutic Exercises Supine Exercises leg press Supine Exercise Name deep squats Side bilateral Resistance 25# Reps/Minutes 3x15 Comments unilateral Standing Exercises calf stretch Side bilateral Reps/Minutes 3x60'' hold heel raise Standing Exercise Name captain alli Side bilateral Reps/Minutes 2x10 Comments 5'' holds Therapeutic Activity Therapeutic Activity step ups Name 8'' step up Reps/Minutes 2x15 Comments cued to keep heel in contract c/ ground; minimal UE assistance Manual Therapy Treatment Soft Tissue Mobilization IASTM Body Location L calf complex Intensity/Depth Moderate Body Position Prone Comments rolling pin Neuro Re-Education Treatment Balance Activities dynamic balance Details adan step overs Equipment hurdles Reps/Duration 2x4 laps SL balance Details SL balance Reps/Duration x5-15'' Comments no UE support; max hold was 15 seconds for R LE PT-OP-T Assessment and Plan Start: 05/31/23 08:11 Freq: Status: Active Protocol: Document 06/21/23 10:33 ED (Rec: 06/21/23 10:36 ED [id number]) Physical Therapy Assessment Goals stairs Impairment stairs Short Term Goal (STG) Pt will be able to negotiate steps c/ reciprocal gait pattern and no UE assistance. STG Duration 3-4 weeks balance Impairment balance Short Term Goal (STG) Pt will be able to perform static SL balance on R LE for 10 seconds. STG Duration 3 weeks -MET [facility] Goal (LTG) Pt will be able to perform dynamic SL balance on R LE c/ control and no pain. LTG Duration 6-8 weeks ROM Impairment ankle ROM Short Term Goal (STG) Pt will improve ankle PF ROM to 40 degrees and ankle DF to 5 degrees c/ knee bent. STG Duration 3 weeks [facility] Goal (LTG) Pt will improve ankle PF ROM to 50 degrees and/or ankle DF to 5 degrees c/ knee bent LTG Duration 6-8 weeks HEP Impairment HEP Short Term Goal (STG) Pt will report performing HEP >4 days/week. STG Duration 3 weeks Quality Assurance Associate Goal (LTG) Pt will report performing HEP >4 days/week. LTG Duration 6-8 weeks Assessment Summary Assessment Pt able to maintain static SL balance on R LE for 15 seconds today ; his best effort earlier this week was 6 seconds. Pt responded well to STM for L calf complex; lateral calf was reported as more tender than rest of area. Physical Therapy Plan Frequency and Duration Frequency of Treatment 2x/Week Duration of treatment (weeks) 10 Plan of Care Start Date 05/31/23 Plan of Care End Date 08/29/23 Therapeutic Interventions Therapeutic Interventions Balance Training,Coordination Training,Gait Training,Home Exercise Program,Joint Mobilizations,Manual Therapy, Neuromuscular Re-education, Patient/Caregiver Education, Self-Care/Home Management,Soft Tissue Mobilization,Taping, Therapeutic Activities, Therapeutic Exercises Modalities Biofeedback,Cold Pack/Ice Massage,Electric Stimulation, Hot Packs Next Visit Focus/Plan Next Note Type Treatment Note Next Visit Plan bike, TM walk, heel raise, SL balance, leg press squat, staggered squat, SL heel raise iso
--- NOTE | 2023-06-26 10:42 | PT.OTN ---
Current Diagnoses Pain in right knee (06/26/23) Pain in right ankle and joints of right foot (06/26/23) Unspecified fracture of shaft of right tibia, subsequent encounter for closed fracture with routine healing (06/26/23) Physical Therapy Treatment Note PT-OP-A Visit Information Start: 05/31/23 08:11 Freq: Status: Active Protocol: Document 06/26/23 10:37 ED (Rec: 06/26/23 10:42 ED [id number]) Out-Patient Physical Therapy Visit Information Visit Information Visit Type Treatment Note Visit Note Date of Surgery: 04/07/23 Visit Start Time 10:00 Visit Stop Time 10:40 Total Visit Minutes 40 Visit Number 7 PT-OP-B Current Condition Start: 05/31/23 08:11 Freq: Status: Active Protocol: Document 05/31/23 08:44 ED (Rec: 05/31/23 09:00 ED [id number]) Current Condition History of Current Condition Onset Date 04/07 History of Current Condition Pt is s/p R IM sohan on 04/07/23 after a tib/fib fracture while hiking in [place]. Pt does speak Andorran and denies wanting an ply bander for PT evaluation. Pt states that his ankle is more red compared to his R ankle and that it hurts when he walks and uses stairs . Per patient report, he is living in a hotel in [facility] until he is ready to go back to his house near [place]. Pt does have access to a gym at the hotel. He denies doing any exercises to after his surgery. Prior Functional Status Baseline Function- ADL's Independent Baseline Function- Mobility Independent PT-OP-C Subjective Start: 05/31/23 08:11 Freq: Status: Active Protocol: Document 06/26/23 10:37 ED (Rec: 06/26/23 10:42 ED [id number]) OP-PT Subjective Patient Comments Patient Comments Pt states that he and his spouse are going to [facility] at the end of the month. He denies ankle pain but does have patellofemoral pain. PT-OP-D Balance Start: 05/31/23 08:11 Freq: Status: Active Protocol: Document 05/31/23 08:44 ED (Rec: 05/31/23 09:00 ED [id number]) Balance Tests Single Limb Standing Single Limb- Right <3 seconds Single Limb- Left 5-10 seconds PT-OP-K Range of Motion Start: 05/31/23 08:11 Freq: Status: Active Protocol: Document 05/31/23 08:44 ED (Rec: 05/31/23 09:00 ED [id number]) Ankle and Foot Goniometric Range of Motion Ankle and Foot Left Active Ankle/Foot ROM WFL Yes Testing Position Sitting Dorsiflexion with Knee Flexed 5 Plantarflexion 50 Right Active Ankle/Foot ROM WFL No Testing Position Sitting Dorsiflexion with Knee Flexed 0 Plantarflexion 30 PT-OP-M Strength Start: 05/31/23 08:11 Freq: Status: Active Protocol: Document 05/31/23 08:44 ED (Rec: 05/31/23 09:00 ED [id number]) Ankle/Foot Strength Ankle and Foot Manual Muscle Testing Left Dorsiflexion (L4) 4 Good Plantarflexion (S1) 4 Good Right Dorsiflexion (L4) 4- Good- Plantarflexion (S1) 3 Fair PT-OP-Q Treatments Start: 05/31/23 08:11 Freq: Status: Active Protocol: Document 06/26/23 10:37 ED (Rec: 06/26/23 10:42 ED [id number]) Cardio Equipment Bicycle (Upright) Duration (Minutes) 5 Other forefoot on pedals Treadmill Duration (Minutes) 15 Speed 1.0 Other fast walk 5', retro walking 5' , normal 5' Therapeutic Exercises Supine Exercises leg press Supine Exercise Name deep squats Side bilateral Resistance 25# Reps/Minutes 3x15 Comments unilateral Sitting Exercises knee extension Sitting Exercise Name knee ext machine Side right Resistance L1 Reps/Minutes 2x8 ankle DF Resistance repeated mobilizations Reps/Minutes 2x20 Standing Exercises calf stretch Side bilateral Reps/Minutes 3x60'' hold heel raise Standing Exercise Name single leg heel raise & leg press heel raise Side right Reps/Minutes 2c34-26 Neuro Re-Education Treatment Balance Activities dynamic balance Details B stance RDL Equipment small physioball Reps/Duration 3x10 PT-OP-T Assessment and Plan Start: 05/31/23 08:11 Freq: Status: Active Protocol: Document 06/26/23 10:37 ED (Rec: 06/26/23 10:42 ED [id number]) Physical Therapy Assessment Goals stairs Impairment stairs Short Term Goal (STG) Pt will be able to negotiate steps c/ reciprocal gait pattern and no UE assistance. STG Duration 3-4 weeks balance Impairment balance Short Term Goal (STG) Pt will be able to perform static SL balance on R LE for 10 seconds. STG Duration 3 weeks -MET Lawn Sprinkler Servicer Goal (LTG) Pt will be able to perform dynamic SL balance on R LE c/ control and no pain. LTG Duration 6-8 weeks ROM Impairment ankle ROM Short Term Goal (STG) Pt will improve ankle PF ROM to 40 degrees and ankle DF to 5 degrees c/ knee bent. STG Duration 3 weeks Correction Goal (LTG) Pt will improve ankle PF ROM to 50 degrees and/or ankle DF to 5 degrees c/ knee bent LTG Duration 6-8 weeks HEP Impairment HEP Short Term Goal (STG) Pt will report performing HEP >4 days/week. STG Duration 3 weeks Lawn Sprinkler Servicer Goal (LTG) Pt will report performing HEP >4 days/week. LTG Duration 6-8 weeks Assessment Summary Assessment Pt had noticeable knee extensor weakness in R LE compared to L LE when performing leg extension machine. His ankle ROM has improved since evaluation; plantar flexion is now 50 degrees and dorsiflexion is now 5 degrees. SL balance is also improving; progressed SL balance to more dynamic movements today such as B stance RDL. Physical Therapy Plan Frequency and Duration Frequency of Treatment 2x/Week Duration of treatment (weeks) 10 Plan of Care Start Date 05/31/23 Plan of Care End Date 08/29/23 Therapeutic Interventions Therapeutic Interventions Balance Training,Coordination Training,Gait Training,Home Exercise Program,Joint Mobilizations,Manual Therapy, Neuromuscular Re-education, Patient/Caregiver Education, Self-Care/Home Management,Soft Tissue Mobilization,Taping, Therapeutic Activities, Therapeutic Exercises Modalities Biofeedback,Cold Pack/Ice Massage,Electric Stimulation, Hot Packs Next Visit Focus/Plan Next Note Type Treatment Note Next Visit Plan bike, TM walk, heel raise, SL balance, leg press squat, knee extension machine, B stance RDL
--- NOTE | 2023-06-28 10:30 | PT.OTN ---
Current Diagnoses Pain in right knee (06/28/23) Pain in right ankle and joints of right foot (06/28/23) Unspecified fracture of shaft of right tibia, subsequent encounter for closed fracture with routine healing (06/28/23) Physical Therapy Treatment Note PT-OP-A Visit Information Start: 05/31/23 08:11 Freq: Status: Active Protocol: Document 06/28/23 10:24 ED (Rec: 06/28/23 10:30 ED [id number]) Out-Patient Physical Therapy Visit Information Visit Information Visit Type Treatment Note Visit Note Date of Surgery: 04/07/23 Visit Start Time 09:50 Visit Stop Time 10:30 Total Visit Minutes 40 Visit Number 8 PT-OP-B Current Condition Start: 05/31/23 08:11 Freq: Status: Active Protocol: Document 05/31/23 08:44 ED (Rec: 05/31/23 09:00 ED [id number]) Current Condition History of Current Condition Onset Date 04/07 History of Current Condition Pt is s/p R IM sohan on 04/07/23 after a tib/fib fracture while hiking in [place]. Pt does speak Niger[place] and denies wanting an risk adjustment specialist for PT evaluation. Pt states that his ankle is more red compared to his R ankle and that it hurts when he walks and uses stairs . Per patient report, he is living in a hotel in [facility] until he is ready to go back to his house near [place]. Pt does have access to a gym at the hotel. He denies doing any exercises to after his surgery. Prior Functional Status Baseline Function- ADL's Independent Baseline Function- Mobility Independent PT-OP-C Subjective Start: 05/31/23 08:11 Freq: Status: Active Protocol: Document 06/28/23 10:24 ED (Rec: 06/28/23 10:30 ED [id number]) OP-PT Subjective Patient Comments Patient Comments Pt scheduled more visits. Pt states that PT has been helpful and he's having less pain in his knee and ankle now . PT-OP-D Balance Start: 05/31/23 08:11 Freq: Status: Active Protocol: Document 05/31/23 08:44 ED (Rec: 05/31/23 09:00 ED [id number]) Balance Tests Single Limb Standing Single Limb- Right <3 seconds Single Limb- Left 5-10 seconds PT-OP-K Range of Motion Start: 05/31/23 08:11 Freq: Status: Active Protocol: Document 05/31/23 08:44 ED (Rec: 05/31/23 09:00 ED [id number]) Ankle and Foot Goniometric Range of Motion Ankle and Foot Left Active Ankle/Foot ROM WFL Yes Testing Position Sitting Dorsiflexion with Knee Flexed 5 Plantarflexion 50 Right Active Ankle/Foot ROM WFL No Testing Position Sitting Dorsiflexion with Knee Flexed 0 Plantarflexion 30 PT-OP-M Strength Start: 05/31/23 08:11 Freq: Status: Active Protocol: Document 05/31/23 08:44 ED (Rec: 05/31/23 09:00 ED [id number]) Ankle/Foot Strength Ankle and Foot Manual Muscle Testing Left Dorsiflexion (L4) 4 Good Plantarflexion (S1) 4 Good Right Dorsiflexion (L4) 4- Good- Plantarflexion (S1) 3 Fair PT-OP-Q Treatments Start: 05/31/23 08:11 Freq: Status: Active Protocol: Document 06/28/23 10:24 ED (Rec: 06/28/23 10:30 ED [id number]) Cardio Equipment Bicycle (Upright) Duration (Minutes) 5 Other forefoot on pedals Treadmill Duration (Minutes) 15 Speed 1.0 Other fast walk 5', retro walking 5' , normal 5' Therapeutic Exercises Supine Exercises leg press Supine Exercise Name deep squats Side bilateral Resistance 25# Reps/Minutes 3x15 Comments unilateral Sitting Exercises knee extension Sitting Exercise Name knee ext machine Side right Resistance L1 Reps/Minutes 2x8 Standing Exercises calf stretch Side bilateral Reps/Minutes 3x60'' hold heel raise Standing Exercise Name single leg heel raise & leg press heel raise Side right Reps/Minutes [id number] Manual Therapy Treatment Soft Tissue Mobilization IASTM Body Location L calf complex Intensity/Depth Moderate Body Position Prone Comments rolling pin PT-OP-T Assessment and Plan Start: 05/31/23 08:11 Freq: Status: Active Protocol: Document 06/28/23 10:24 ED (Rec: 06/28/23 10:30 ED [id number]) Physical Therapy Assessment Goals stairs Impairment stairs Short Term Goal (STG) Pt will be able to negotiate steps c/ reciprocal gait pattern and no UE assistance. STG Duration 3-4 weeks -MET balance Impairment balance Short Term Goal (STG) Pt will be able to perform static SL balance on R LE for 10 seconds. STG Duration 3 weeks -MET Qa Tester Goal (LTG) Pt will be able to perform dynamic SL balance on R LE c/ control and no pain. LTG Duration 6-8 weeks ROM Impairment ankle ROM Short Term Goal (STG) Pt will improve ankle PF ROM to 40 degrees and ankle DF to 5 degrees c/ knee bent. -MET STG Duration 3 weeks Qa Tester Goal (LTG) Pt will improve ankle PF ROM to 50 degrees and/or ankle DF to 5 degrees c/ knee bent LTG Duration 6-8 weeks HEP Impairment HEP Short Term Goal (STG) Pt will report performing HEP >4 days/week. STG Duration 3 weeks Qa Tester Goal (LTG) Pt will report performing HEP >4 days/week. LTG Duration 6-8 weeks Assessment Summary Assessment Continued working on balance, PF strength, knee extensor strength, and improving gait quality. Pt improving in balance as he was able to perform retro walking on TM without using UEs on railing and he was able to perform slow adan step overs in a controlled fashion. DF has gradually improved as well. Physical Therapy Plan Frequency and Duration Frequency of Treatment 2x/Week Duration of treatment (weeks) 10 Plan of Care Start Date 05/31/23 Plan of Care End Date 08/29/23 Next Visit Focus/Plan Next Note Type Treatment Note Next Visit Plan bike, TM walk, heel raise, SL balance, leg press squat, knee extension machine, B stance RDL
--- NOTE | 2023-07-03 11:23 | PT.OTN ---
Current Diagnoses Pain in right knee (07/03/23) Pain in right ankle and joints of right foot (07/03/23) Unspecified fracture of shaft of right tibia, subsequent encounter for closed fracture with routine healing (07/03/23) Physical Therapy Treatment Note PT-OP-A Visit Information Start: 05/31/23 08:11 Freq: Status: Active Protocol: Document 07/03/23 11:20 ED (Rec: 07/03/23 11:23 ED [id number]) Out-Patient Physical Therapy Visit Information Visit Information Visit Type Treatment Note Visit Note Date of Surgery: 04/07/23 Visit Start Time 10:40 Visit Stop Time 11:20 Total Visit Minutes 40 Visit Number 9 PT-OP-B Current Condition Start: 05/31/23 08:11 Freq: Status: Active Protocol: Document 05/31/23 08:44 ED (Rec: 05/31/23 09:00 ED [id number]) Current Condition History of Current Condition Onset Date 04/07 History of Current Condition Pt is s/p R IM sohan on 04/07/23 after a tib/fib fracture while hiking in [place]. Pt does speak Citizen [place] and denies wanting an information management officer for PT evaluation. Pt states that his ankle is more red compared to his R ankle and that it hurts when he walks and uses stairs . Per patient report, he is living in a hotel in town until he is ready to go back to his house near [place]. Pt does have access to a gym at the hotel. He denies doing any exercises to after his surgery. Prior Functional Status Baseline Function- ADL's Independent Baseline Function- Mobility Independent PT-OP-C Subjective Start: 05/31/23 08:11 Freq: Status: Active Protocol: Document 07/03/23 11:20 ED (Rec: 07/03/23 11:23 ED [id number]) OP-PT Subjective Patient Comments Patient Comments Pt needs to cancel next 4 appointments as he will be out of town. States that his R ankle and knee are feeling good and he doesn't have much pain anymore. PT-OP-D Balance Start: 05/31/23 08:11 Freq: Status: Active Protocol: Document 05/31/23 08:44 ED (Rec: 05/31/23 09:00 ED [id number]) Balance Tests Single Limb Standing Single Limb- Right <3 seconds Single Limb- Left 5-10 seconds PT-OP-K Range of Motion Start: 05/31/23 08:11 Freq: Status: Active Protocol: Document 05/31/23 08:44 ED (Rec: 05/31/23 09:00 ED [id number]) Ankle and Foot Goniometric Range of Motion Ankle and Foot Left Active Ankle/Foot ROM WFL Yes Testing Position Sitting Dorsiflexion with Knee Flexed 5 Plantarflexion 50 Right Active Ankle/Foot ROM WFL No Testing Position Sitting Dorsiflexion with Knee Flexed 0 Plantarflexion 30 PT-OP-M Strength Start: 05/31/23 08:11 Freq: Status: Active Protocol: Document 05/31/23 08:44 ED (Rec: 05/31/23 09:00 ED [id number]) Ankle/Foot Strength Ankle and Foot Manual Muscle Testing Left Dorsiflexion (L4) 4 Good Plantarflexion (S1) 4 Good Right Dorsiflexion (L4) 4- Good- Plantarflexion (S1) 3 Fair PT-OP-Q Treatments Start: 05/31/23 08:11 Freq: Status: Active Protocol: Document 07/03/23 11:20 ED (Rec: 07/03/23 11:23 ED [id number]) Cardio Equipment Bicycle (Upright) Duration (Minutes) 5 Other forefoot on pedals Treadmill Duration (Minutes) 15 Speed 1.0 Other fast walk 5', retro walking 5' , normal 5' Therapeutic Exercises Supine Exercises leg press Supine Exercise Name deep squats Side bilateral Resistance 25# Reps/Minutes 3x15 Comments unilateral Sitting Exercises knee extension Sitting Exercise Name knee ext machine Side right Resistance L2, L1 Reps/Minutes 2x10; 2x8 Standing Exercises standing dorsiflexion Standing Exercise Name stairs repeated dorsiflexion mov't Reps/Minutes 2x20 calf stretch Side bilateral Reps/Minutes 3x60'' hold heel raise Standing Exercise Name single leg heel raise & leg press heel raise Side right Reps/Minutes [id number] Therapeutic Activity Therapeutic Activity step ups Name manuel step ups Reps/Minutes 2x10 Comments UE assist for balance PT-OP-T Assessment and Plan Start: 05/31/23 08:11 Freq: Status: Active Protocol: Document 07/03/23 11:20 ED (Rec: 07/03/23 11:23 ED [id number]) Physical Therapy Assessment Goals stairs Impairment stairs Short Term Goal (STG) Pt will be able to negotiate steps c/ reciprocal gait pattern and no UE assistance. STG Duration 3-4 weeks -MET balance Impairment balance Short Term Goal (STG) Pt will be able to perform static SL balance on R LE for 10 seconds. STG Duration 3 weeks -MET Block Sawyer Goal (LTG) Pt will be able to perform dynamic SL balance on R LE c/ control and no pain. LTG Duration 6-8 weeks ROM Impairment ankle ROM Short Term Goal (STG) Pt will improve ankle PF ROM to 40 degrees and ankle DF to 5 degrees c/ knee bent. -MET STG Duration 3 weeks [facility]ci Goal (LTG) Pt will improve ankle PF ROM to 50 degrees and/or ankle DF to 5 degrees c/ knee bent LTG Duration 6-8 weeks HEP Impairment HEP Short Term Goal (STG) Pt will report performing HEP >4 days/week. STG Duration 3 weeks [facility] Goal (LTG) Pt will report performing HEP >4 days/week. LTG Duration 6-8 weeks Assessment Summary Assessment Continued working on balance, PF strength, knee extensor strength, and improving gait quality. Pt improving in balance as he was able to perform retro walking on TM without using UEs on railing and he was able to perform slow adan step overs in a controlled fashion. Continues to show reduced knee extension strength in R vs L LE. Otherwise he is approaching symmetrical strength and balance of LEs. Physical Therapy Plan Frequency and Duration Frequency of Treatment 2x/Week Duration of treatment (weeks) 10 Plan of Care Start Date 05/31/23 Plan of Care End Date 08/29/23 Therapeutic Interventions Therapeutic Interventions Balance Training,Coordination Training,Gait Training,Home Exercise Program,Joint Mobilizations,Manual Therapy, Neuromuscular Re-education, Patient/Caregiver Education, Self-Care/Home Management,Soft Tissue Mobilization,Taping, Therapeutic Activities, Therapeutic Exercises Modalities Biofeedback,Cold Pack/Ice Massage,Electric Stimulation, Hot Packs Next Visit Focus/Plan Next Note Type Treatment Note Next Visit Plan LEFS, check ROM, bike, TM walk, heel raise, SL balance, leg press squat, knee extension machine, B stance RDL
--- NOTE | 2023-07-23 15:20 | PT.OPDS ---
Current Diagnoses Pain in right knee (07/03/23) Pain in right ankle and joints of right foot (07/03/23) Unspecified fracture of shaft of right tibia, subsequent encounter for closed fracture with routine healing (07/03/23) Visit Care Team Role Provider Type Mayra Bonner MD Family Provider Non-Staff Primary Care Provider Specialty: Internal Medicine Address: [address] [place], [address] Email: Frankie Camp DPM Attending Provider Non-Staff Referring Provider Specialty: Medical Address: [address] [place], [address] Email: Visit Number Visit Number 9 Discharge Summary PT-OP-B Current Condition Start: 05/31/23 08:11 Freq: Status: Active Protocol: Document 05/31/23 08:44 ED (Rec: 05/31/23 09:00 ED [id number]) Current Condition History of Current Condition Onset Date 04/07 History of Current Condition Pt is s/p R IM sohan on 04/07/23 after a tib/fib fracture while hiking in [place]. Pt does speak [place] and denies wanting an script girl for PT evaluation. Pt states that his ankle is more red compared to his R ankle and that it hurts when he walks and uses stairs . Per patient report, he is living in a hotel in town until he is ready to go back to his house near [place]. Pt does have access to a gym at the hotel. He denies doing any exercises to after his surgery. Prior Functional Status Baseline Function- ADL's Independent Baseline Function- Mobility Independent PT-OP-C Subjective Start: 05/31/23 08:11 Freq: Status: Active Protocol: Document 07/03/23 11:20 ED (Rec: 07/03/23 11:23 ED [id number]) OP-PT Subjective Patient Comments Patient Comments Pt needs to cancel next 4 appointments as he will be out of town. States that his R ankle and knee are feeling good and he doesn't have much pain anymore. PT-OP-D Balance Start: 05/31/23 08:11 Freq: Status: Active Protocol: Document 05/31/23 08:44 ED (Rec: 05/31/23 09:00 ED [id number]) Balance Tests Single Limb Standing Single Limb- Right <3 seconds Single Limb- Left 5-10 seconds PT-OP-K Range of Motion Start: 05/31/23 08:11 Freq: Status: Active Protocol: Document 05/31/23 08:44 ED (Rec: 05/31/23 09:00 ED [id number]) Ankle and Foot Goniometric Range of Motion Ankle and Foot Left Active Ankle/Foot ROM WFL Yes Testing Position Sitting Dorsiflexion with Knee Flexed 5 Plantarflexion 50 Right Active Ankle/Foot ROM WFL No Testing Position Sitting Dorsiflexion with Knee Flexed 0 Plantarflexion 30 PT-OP-M Strength Start: 05/31/23 08:11 Freq: Status: Active Protocol: Document 05/31/23 08:44 ED (Rec: 05/31/23 09:00 ED [id number]) Ankle/Foot Strength Ankle and Foot Manual Muscle Testing Left Dorsiflexion (L4) 4 Good Plantarflexion (S1) 4 Good Right Dorsiflexion (L4) 4- Good- Plantarflexion (S1) 3 Fair PT-OP-T Assessment and Plan Start: 05/31/23 08:11 Freq: Status: Active Protocol: Document 07/23/23 15:17 ED (Rec: 07/23/23 15:20 ED [id number]) Physical Therapy Assessment Goals stairs Impairment stairs Short Term Goal (STG) Pt will be able to negotiate steps c/ reciprocal gait pattern and no UE assistance. STG Duration 3-4 weeks -MET balance Impairment balance Short Term Goal (STG) Pt will be able to perform static SL balance on R LE for 10 seconds. STG Duration 3 weeks -MET Senior Outside Sales Representative Goal (LTG) Pt will be able to perform dynamic SL balance on R LE c/ control and no pain. LTG Duration 6-8 weeks -PARTIALLY MET ROM Impairment ankle ROM Short Term Goal (STG) Pt will improve ankle PF ROM to 40 degrees and ankle DF to 5 degrees c/ knee bent. -MET STG Duration 3 weeks Shelter Goal (LTG) Pt will improve ankle PF ROM to 50 degrees and/or ankle DF to 5 degrees c/ knee bent LTG Duration 6-8 weeks HEP Impairment HEP Short Term Goal (STG) Pt will report performing HEP >4 days/week. STG Duration 3 weeks Senior Outside Sales Representative Goal (LTG) Pt will report performing HEP >4 days/week. LTG Duration 6-8 weeks Assessment Summary Assessment Pt will be discharged from PT services at this time. He improved in his balance, strength, and overall functional mobility after an ORIF for his R tib/fib. Pt able to perform single limb static balance for ~10 seconds , was able to perform full ROM single leg heel raises, and improved his walking mechanics . Pt was originally going to be discharged later this week but he will not be in town for most of July and cancelled all remaining visits . Physical Therapy Plan Discharge Physical Therapy Discharge Reasons No Longer Attending PT
== END 2023-07-30 09:07 | disposition home or self-care (01) ==
LOC: PHYS 10:45
PROVIDERS: Family Provider Internal Medicine; PCP Internal Medicine; Referring Provider Podiatrist; Visit Provider Podiatrist
DX: M25.561 Pain in right knee (principal); M25.571 Pain in right ankle and joints of right foot; S82.201D Unspecified fracture of shaft of right tibia, subsequent encounter for closed fracture with routine healing
CPT/HCPCS: 97110; 97112; 97140; 97161; 97530